=== PATIENT | male | born 1965 | race Caucasian/White ===

== ENCOUNTER 2016-10-26 09:18 | Day surgery (SDC) | payer OTHER ==
[~2016-10-26 09:18] MED LIST: ALPRAZolam 0.25 MG TAB PO ONE; HYDROmorphone 1 MG/ML 1 ML SYRINGE IVP PRN
[2016-10-26 09:49] LABS: Mean Platelet Volume 8.7
[2016-10-26] MEDS ORDERED: ALPRAZolam 0.5 MG TAB PO STA (09:56)
[2016-10-26 09:59] VITALS: RESP 16; TEMP 93.5
[2016-10-26 10:08] LABS: INR 1.3 (<1.1); Prothrombin Time 12.4 sec (9.0-12.0)
--- NOTE | 2016-10-26 11:18 | CT ---
EXAMINATION TYPE: CT biopsy lymph node DATE OF EXAM: 10/26/2016 COMPARISON: NONE HISTORY: Retroperitoneal lymphadenopathy CT DLP: 1857mGycm The procedure was explained to the patient. The risks, complications, benefits, and alternatives wer e discussed and any questions were answered. Informed consent was obtained. Patient was placed pron e on the CT table and prepped and draped in the usual sterile fashion. All elements of maximal barrier and sterile technique utilized. Utilizing CT guidance, an 18 gauge core biopsy needle access into the retroperitoneal adenopathy was achieved and three 18 gauge core samples and 3 FNA samples or obtained. The patient was stable throu ghout the procedure and remained stable upon discharge. IMPRESSION: 1. Successful 18 gauge core biopsy and FNA of retroperitoneal mass. Note is made that the samples wer e acellular. If warranted consider surgical biopsy.
[2016-10-26 14:20] VITALS: PULSE 72
[2016-10-26 16:21] VITALS: BP 106/72
== END 2016-10-26 14:45 | disposition home or self-care (01) ==
LOC: RADPROMAIN 09:18
PROVIDERS: ATTEND Surgery
DX: R59.1 Generalized enlarged lymph nodes (principal)
CPT/HCPCS: 88305; 88173; 85049; 85610; 36415; 77012; 38505; J1170; 10022

== ENCOUNTER 2016-11-15 09:02 | Day surgery (SDC) | payer OTHER ==
[2016-11-15 09:45] LABS: Basophils # (A) 0.1 k/uL (0-0.2); Basophils % (A) 1 %; CH 33.1; Eosinophils # (A) 0.3 k/uL (0-0.7); Eosinophils % (A) 4 %; HCT 41.6 % (39.0-53.0); HDW 2.65; HGB 14.5 gm/dL (13.0-17.5); Luc # (Auto) 0.17; Luc % (Auto) 2; Lymphocytes # (A) 1.6 k/uL (1.0-4.8); Lymphocytes % (A) 22 %; MCH 34.2 pg (25.0-35.0); MCHC 34.9 g/dL (31.0-37.0); MCV 97.9 fL (80.0-100.0); Mean Platelet Volume 7.2; Monocytes # (A) 0.5 k/uL (0-1.0); Monocytes % (A) 7 %; Neutrophils # (A) 4.7 k/uL (1.3-7.7); Neutrophils % (A) 64 %; RBC 4.25 m/uL (4.30-5.90); RDW 13.7 % (11.5-15.5); WBC 7.3 k/uL (3.8-10.6); WBC (Perox) 7.33
[2016-11-15 09:53] VITALS: RESP 14; TEMP 97.7
[2016-11-15 09:53] LABS: ALT 33 U/L (21-72); AST 54 U/L (17-59); Alkaline Phosphatase 116 U/L (38-126); Anion Gap 11 mmol/L; Blood Urea Nitrogen 11 mg/dL (9-20); Calcium 8.2 mg/dL (8.4-10.2); Carbon Dioxide 31 mmol/L (22-30); Chloride 95 mmol/L (98-107); Glucose 190 mg/dL (74-99); Non-African American GFR(MDRD) >60 (>60 ml/min/1.73 sqM); Sodium 137 mmol/L (137-145); Total Protein 6.7 g/dL (6.3-8.2)
[2016-11-15 09:57] LABS: INR 1.3 (<1.2); Prothrombin Time 12.7 sec (9.0-12.0)
[2016-11-15] MEDS: ALBUMIN HUMAN 25% 50 ML in EMPTY BAG 1 BAG IVPB SCH ×4 (10:28→11:31)
[2016-11-15] MEDS: POTASSIUM CHLORIDE ER 20 MEQ TAB.ER PO SCH ×2 (11:47→12:45)
[2016-11-15 12:18] VITALS: BP 114/62; PULSE 80
--- NOTE | 2016-11-15 13:38 | US ---
EXAMINATION TYPE: US paracentesis abd w/image DATE OF EXAM: 11/15/2016 COMPARISON: NONE HISTORY: Ascites. PROCEDURE: Maximal barrier technique was utilized. The skin overlying a suitable pocket of fluid was localized with ultrasound and the overlying skin was prepped and draped. Ultrasound was utilized with sterile technique. Lidocaine was used for local anesthesia and a skin chacho made with a scalpel. Catheter was advanced under direct ultrasound guidance into a suitable pocket of fluid and approximately 12.3 L of serous fluid were removed. Catheter was withdrawn and hemostasis achieved. There is no immediate c omplication; the patient is discharged in stable condition. IMPRESSION: STATUS POST ULTRASOUND GUIDED PARACENTESIS FOR PALLIATION OF ASCITES. THIS PROCEDURE WA S PERFORMED BY THE UNDERSIGNED.
[2016-11-15 20:39] LABS: RBC, Body Fluid 146 /uL
[2016-11-16 12:54] LABS: LDH, Body Fluid Source Peritoneal Fluid; T. Protein, Body Fluid Source Peritoneal Fluid; Total Protein, Body Fluid 931 mg/dL
== END 2016-11-15 12:54 | disposition home or self-care (01) ==
LOC: RADPROMAIN 09:02
PROVIDERS: ATTEND Physician Assistant
DX: R18.8 Other ascites (principal)
CPT/HCPCS: 88108; 88305; 80053; 89050; 85025; 85610; 83615; 84157; 96365; 49083; P9047

== ENCOUNTER 2016-12-22 08:47 | Day surgery (SDC) | payer OTHER ==
[2016-12-22 09:41] LABS: Mean Platelet Volume 8.2
[2016-12-22 09:46] LABS: INR 1.2 (<1.2)
[2016-12-22 09:50] LABS: Non-African American GFR(MDRD) >60 (>60 ml/min/1.73 sqM)
[2016-12-22 09:56] VITALS: TEMP 98
--- NOTE | 2016-12-22 10:40 | US ---
Therapeutic paracentesis. DATE OF EXAM: 12/22/2016 CLINICAL HISTORY: Ascites The procedure was discussed with the patient. The risks, complications, benefits, and alternatives we re discussed and any questions were answered. Informed consent was obtained. The patient was placed s upine on the ultrasound table and prepped and draped in the usual sterile fashion. All elements of maximal barrier technique were utilized. Under ultrasound guidance, access into the right lower quadrant was obtained, via the paracentesis catheter system and direct ultrasound guidanc e. Approximately 2.4 liters of straw-colored fluid was removed. The patient was stable throughout the pr ocedure and remained stable upon discharge from Department of Radiology. IMPRESSION: Successful therapeutic paracentesis under ultrasound guidance.
[2016-12-22] MEDS: ALBUMIN HUMAN 25% 50 ML in EMPTY BAG 1 BAG IVPB SCH (10:56)
[2016-12-22 11:13] VITALS: BP 130/73; PULSE 75; RESP 16
== END 2016-12-22 11:00 | disposition home or self-care (01) ==
LOC: RADPROMAIN 08:47
PROVIDERS: ATTEND Physician Assistant
DX: R18.8 Other ascites (principal)
CPT/HCPCS: 36415; 49083; 82565; 85049; 85610